=== PATIENT | female | born 1940 | race Caucasian/White ===

== ENCOUNTER 2023-11-16 15:01 | Inpatient (IN) | payer BC ==
[~2023-11-16] VITALS: Ht 154.9 cm; Wt 62.3 kg
[2023-11-16 15:02] VITALS: BP_SYST 120; PULSE 84; RESP 18; TEMP 97; O2SAT 96
[2023-11-16 16:03] LABS: BASOPHILS % (AUTO) 0.8 % (0.0-2.0); HEMATOCRIT 38.2 % (36-48); HEMOGLOBIN 12.9 g/dL (12.0-16.0); MEAN CORPUSCULAR HGB CONC 34 % (32-36); MONOCYTES # (AUTO) 0.3 K/uL (0.0-1.0); NEUTROPHILS # (AUTO) 3.4 K/uL (1.8-7.7); NEUTROPHILS % (AUTO) 69.1 % (40.0-70.0); RED BLOOD CELL COUNT(AUTO) 4.23 MIL/uL (4.2-6.2); WHITE BLOOD COUNT (AUTO) 4.9 K/uL (4.8-10.8)
[2023-11-16 16:08] LABS: EOSINOPHILS # (AUTO) 0.1 K/uL (0.0-0.4); EOSINOPHILS % (AUTO) 2.9 % (0.0-4.0); LYMPHOCYTES % (AUTO) 20.7 % (20.5-51.5); MEAN CORPUSCULAR HEMOGLOBIN 31 pg (27-31); MEAN CORPUSCULAR VOLUME 91 fL (79.0-98.0); MONOCYTES % (AUTO) 6.5 % (1.7-9.3); PLATELET COUNT (AUTO) 178 K/uL (130-430); RED CELL DISTRIBUTION WIDTH 14.2 % (9.0-15.0)
[2023-11-16 16:10] LABS: ANION GAP 10 (5-15); CALCIUM 9.5 mg/dL (8.4-11.0); CARBON DIOXIDE 24 mmol/L (23-29); CHLORIDE 109 mmol/L (98-107); GLUCOSE 101 mg/dL (74-106); POTASSIUM 3.9 mmol/L (3.5-5.1); SODIUM SERUM 143 mmol/L (136-145); UREA NITROGEN, BLOOD 25 mg/dL (8-21)
[2023-11-16 16:14] LABS: PROTHROMBIN TIME 10.1 SECS (9.5-12.5)
[2023-11-16 16:16] LABS: ALANINE AMINOTRANSFERASE 18 U/L (12-78); ALBUMIN 4.1 g/dL (3.4-4.8); AMYLASE 52 U/L (0-100); ASPARTATE AMINOTRANSFERASE 16 U/L (10-37); BILIRUBIN,DIRECT 0.1 mg/dL (0.0-0.3); LIPASE 51 U/L (16-77); TOTAL BILIRUBIN 0.3 mg/dL (0.0-1.0); TOTAL PROTEIN, SERUM 7.1 g/dL (6.4-8.3)
[2023-11-16 16:17] LABS: ALCOHOL, BLOOD < 3 mg/dL (<10)
[2023-11-16 16:24] LABS: ACETONE, SERUM NEGATIVE (NEGATIVE)
[2023-11-16] MEDS: IBUPROFEN 600 MG TABLET PO ONE (17:13)
[2023-11-16 17:46] LABS: BILIRUBIN,URINE NEGATIVE (NEGATIVE); BLOOD, URINE 1+ (NEGATIVE); CLARITY/URINE CLEAR (CLEAR); COLOR,URINE YELLOW (YELLOW); GLUCOSE,URINE NEGATIVE (NEGATIVE); KETONES,URINE NEGATIVE (NEGATIVE); LEUKOCYTE ESTERASE ,URINE NEGATIVE (NEGATIVE); NITRITE, URINE NEGATIVE (NEGATIVE); PROTEIN URINE NEGATIVE (NEGATIVE); UROBILINOGEN,URINE 0.2 (0.2-1.0)
[2023-11-16 17:50] LABS: BACTERIA,URINE RARE /HPF (None Seen); MUCUS,URINE 1+ /LPF (None Seen); RBC,URINE 0-3 /HPF (0-3); WBC,URINE 0-3 /HPF (0-3)
[2023-11-16] MEDS ORDERED: MONT-40 PO (18:43)
[2023-11-16] MEDS ORDERED: CLOP75TA32 PO (18:43)
[2023-11-16] MEDS ORDERED: LISI20TA30 PO (18:43)
[2023-11-16] MEDS ORDERED: MECL-292 PO (18:43)
[2023-11-16] MEDS ORDERED: ERGO1250 PO (18:43)
[2023-11-16] MEDS ORDERED: MECLIZINE HCL 25 MG TABLET (ANITVERT) PO PRN (18:45)
[2023-11-16] MEDS ORDERED: cloNIDine HCL 0.1 MG TABLET PO PRN (18:45)
[2023-11-16 20:41] VITALS: BP_SYST 145; PULSE 65; RESP 18; TEMP 97; O2SAT 99
[2023-11-16] MEDS: ENOXAPARIN SODIUM 40 MG/0.4 ML SYRINGE SUBCUT SCH (21:00)
[2023-11-17 00:16] VITALS: BP_SYST 152; PULSE 62; RESP 19; TEMP 98.2
[2023-11-17 05:30] LABS: BASOPHILS % (AUTO) 0.6 % (0.0-2.0); EOSINOPHILS # (AUTO) 0.2 K/uL (0.0-0.4); EOSINOPHILS % (AUTO) 3.7 % (0.0-4.0); HEMATOCRIT 34.5 % (36-48); HEMOGLOBIN 11.8 g/dL (12.0-16.0); MEAN CORPUSCULAR HEMOGLOBIN 30 pg (27-31); MEAN CORPUSCULAR HGB CONC 34 % (32-36); MEAN CORPUSCULAR VOLUME 89 fL (79.0-98.0); MONOCYTES # (AUTO) 0.3 K/uL (0.0-1.0); MONOCYTES % (AUTO) 8.3 % (1.7-9.3); NEUTROPHILS # (AUTO) 2.6 K/uL (1.8-7.7); NEUTROPHILS % (AUTO) 62.4 % (40.0-70.0); PLATELET COUNT (AUTO) 173 K/uL (130-430); RED CELL DISTRIBUTION WIDTH 13.9 % (9.0-15.0); WHITE BLOOD COUNT (AUTO) 4.2 K/uL (4.8-10.8)
[2023-11-17 06:30] LABS: ALANINE AMINOTRANSFERASE 17 U/L (12-78); ALBUMIN 3.6 g/dL (3.4-4.8); ANION GAP 10 (5-15); ASPARTATE AMINOTRANSFERASE 14 U/L (10-37); CALCIUM 9.3 mg/dL (8.4-11.0); CARBON DIOXIDE 23 mmol/L (23-29); CHLORIDE 110 mmol/L (98-107); CHOLESTEROL 148 mg/dL (<200); CREATININE 0.76 mg/dL (0.55-1.30); GLUCOSE 96 mg/dL (74-106); HDL CHOLESTEROL 82 mg/dL (>55); POTASSIUM 3.8 mmol/L (3.5-5.1); SODIUM SERUM 143 mmol/L (136-145); THYROID STIMULATING HORMONE 1.31 uIu/mL (0.34-4.82); TOTAL BILIRUBIN 0.4 mg/dL (0.0-1.0); TOTAL PROTEIN, SERUM 6.3 g/dL (6.4-8.3); TRIGLYCERIDES 55 mg/dL (30-150); UREA NITROGEN, BLOOD 20 mg/dL (8-21)
[2023-11-17 08:00] VITALS: BP_SYST 149; PULSE 68; TEMP 98.1; O2SAT 95
[2023-11-17] MEDS: CLOPIDOGREL BISULFATE 75 MG TABLET PO SCH (10:02)
[2023-11-17] MEDS: lisinopriL 20 MG TABLET PO SCH (10:02)
[2023-11-17] MEDS: MONTELUKAST 10 MG TABLET PO SCH (10:02)
[2023-11-17] MEDS ORDERED: iohexoL 350 mgI/mL, 100 ML INFUS..BTL IV ONE (10:58)
[2023-11-17 11:18] VITALS: BP_SYST 149; PULSE 71; RESP 16; TEMP 98; O2SAT 95
[2023-11-17] MEDS: MORPHINE 2 MG/ML INJ. SYRINGE ONE (13:28)
[2023-11-17] MEDS ORDERED: MORPHINE 2 MG/ML INJ. SYRINGE IVP PRN (13:30)
[2023-11-17 16:54] VITALS: BP_SYST 122; PULSE 74; RESP 17; TEMP 98.2; O2SAT 96
[2023-11-17 18:30] VITALS: BP_SYST 130; BP_SYST 135; BP_SYST 142; PULSE 70; PULSE 72; PULSE 83
[2023-11-17 20:01] VITALS: BP_SYST 145; PULSE 73; RESP 18; TEMP 97.5; O2SAT 95
[2023-11-18 00:35] VITALS: BP_SYST 126; PULSE 72; RESP 17; TEMP 98
[2023-11-18 07:49] VITALS: BP_SYST 139; PULSE 64; RESP 18; TEMP 96.8; O2SAT 98
[2023-11-18 08:26] VITALS: O2SAT 98
[2023-11-18 11:33] VITALS: BP_SYST 98; PULSE 74; RESP 17; TEMP 97.5; O2SAT 95
[2023-11-18 16:42] VITALS: BP_SYST 150; PULSE 66; RESP 17; TEMP 98; O2SAT 96
[2023-11-18] MEDS ORDERED: ZIT250 PO (17:15)
[2023-11-18 17:32] VITALS: BP_SYST 150; PULSE 66; RESP 17; TEMP 98; O2SAT 96
== END 2023-11-18 17:50 | disposition home or self-care (01) | DRG 69 ==
LOC: SED 15:01 → STU 18:04
PROVIDERS: ADMIT Internal Medicine; ATTEND Internal Medicine
PROC: 4A00X4Z Measurement of Central Nervous Electrical Activity, External Approach (ICD-10-PCS; principal; 2023-11-16)
DX: G45.9 Transient cerebral ischemic attack, unspecified (principal); R07.89 Other chest pain; J01.90 Acute sinusitis, unspecified; I10 Essential (primary) hypertension; Z96.641 Presence of right artificial hip joint; Z96.652 Presence of left artificial knee joint; Z95.2 Presence of prosthetic heart valve
CPT/HCPCS: 36415; 70450-TC; 70551; 71045; 71275; 72170-TC; 73502; 80048; 80053; 80061; 80076; 81000; 81001; 81015; 82009; 82150; 82948; 83690; 83735; 83880; 84439; 84443; 84484; 85025; 85379; 85610; 85730; 93005; 93306; 93880; 93970; 95816; 99285; G0378; G0482; J1650; J2270; Q9967